=== PATIENT | female | born 1960 | race Caucasian/White ===

== ENCOUNTER 2018-10-13 12:10 | Outpatient (CLI) | payer BC | END 2018-10-13 12:11 | disposition home or self-care (01) | LOC: BICMAMMO 12:10 | PROVIDERS: ATTEND Obstetrics & Gynecology | DX: Z12.31 Encounter for screening mammogram for malignant neoplasm of breast (principal); R92.1 Mammographic calcification found on diagnostic imaging of breast | CPT/HCPCS: 77063; 77067 ==

== ENCOUNTER 2019-02-06 11:30 | Emergency (ER) | payer BC ==
[2019-02-06] MEDS ORDERED: Fluorescein Opthalmic Strip ONE (11:57)
[2019-02-06] MEDS ORDERED: Proparacaine 0.5% Opth 15 ML BOT ONE (11:58)
--- NOTE | 2019-02-06 13:10 | CT ---
CT BRAIN PERFORMED WITHOUT CONTRAST ENHANCEMENT: Date: 02/06/19 HISTORY: Headache. FINDINGS: The ventricular and cisternal system is within normal limits. There are no signs of intracerebral hem orrhage or extra-axial fluid collections. Mastoid air cells and visualized sinuses are clear. IMPRESSION: No acute intracranial abnormalities. POS: [facility]
== END 2019-02-06 13:22 | disposition home or self-care (01) ==
LOC: ERS 11:30
DX: R51 Headache (principal); M81.0 Age-related osteoporosis without current pathological fracture; H40.9 Unspecified glaucoma
CPT/HCPCS: 70450

== ENCOUNTER 2019-09-16 09:04 | Outpatient (CLI) | payer BC ==
--- NOTE | 2019-09-16 11:28 | BD ---
DEXA BONE DENSITY STUDY: Date: 09/16/19 HISTORY: Postmenopausal. 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 POS: [facility]
== END 2019-09-16 09:05 | disposition home or self-care (01) ==
LOC: BICMAMMO 09:04
PROVIDERS: ATTEND Obstetrics & Gynecology
DX: Z13.820 Encounter for screening for osteoporosis (principal); M81.0 Age-related osteoporosis without current pathological fracture
CPT/HCPCS: 77080